=== PATIENT | male | born 1950 | race Caucasian/White ===

== ENCOUNTER 2017-01-14 15:57 | Emergency (ER) | payer MEDICARE, OTHER ==
[2017-01-14] MEDS ORDERED: Lidocaine 1% 20 ML MDV INJECT ONE (16:38)
[2017-01-14] MEDS ORDERED: Bacitracin Oint 1 GM U/D Packet TOP ONE (16:39)
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
[2017-01-14 18:07] VITALS: BP 156/76
--- NOTE | 2017-01-15 10:02 | CR ---
Oblique impacted fracture fourth proximal phalanx. Scattered IP joint degenerative change.
== END 2017-01-14 18:07 | disposition home or self-care (01) ==
LOC: JP.ED 15:57
DX: S62.615A Displaced fracture of proximal phalanx of left ring finger, initial encounter for closed fracture (principal); I10 Essential (primary) hypertension; E78.00 Pure hypercholesterolemia, unspecified; Z90.89 Acquired absence of other organs; Z98.890 Other specified postprocedural states; E03.9 Hypothyroidism, unspecified; Z79.899 Other long term (current) drug therapy; Z79.82 Long term (current) use of aspirin; Z88.0 Allergy status to penicillin; W22.8XXA Striking against or struck by other objects, initial encounter
CPT/HCPCS: 12001; 73130; 99283; A4217